=== PATIENT | male | born 1970 | race Caucasian/White ===

== ENCOUNTER 2016-10-10 10:12 | Emergency (ER) | payer BC ==
--- NOTE | 2016-10-10 10:17 | DR.GENAD ---
HPI - HPI Comment HPI Comment: PAIN STARTED SUDDENLY THIS MORNING AND PROGRESSIVELY GOT WORSE. NAUSEATED BUT NO VOMITING. NO DYSURIA OR HEMATURIA. NO DIARRHEA. NO TRAUMA IN THE AREA. - Complaint/Symptoms Chief Complaint Doctors Comments: RUQ ABDOMINAL PAIN EXTENDING TO RIGHT LATERAL ABDOMEN TIMES FEW HOURS. - Nurses notes reviewed Nurses Notes Review: Yes - Source History Provided: Patient, Family Member - Mode of Arrival Mode of Arrival: Ambulatory - Timing Came on: Suddenly - Duration Duration: Constant Duration: Hours - Severity Severity: Moderate ROS - Review of Systems Constitutional: negative: Chills, Fever, Malaise Eyes: No Symptoms Reported. negative: Eye Pain, Discharge ENTM: No Symptoms Reported. negative: Ear Pain, Nose Discharge, Nose Congestion , Throat Pain Respiratoy: No Symptoms Reported. negative: Productive Cough, Short of Breath, Wheezing, Hemoptysis Cardiovascular: No Symptoms Reported. negative: Chest Pain Gastrointestinal/Abdominal: Abdominal Pain, Nausea. negative: Constipation, Diarrhea, Vomiting Genitourinary: No Symptoms Reported. negative: Dysuria, Frequency, Hematuria Neurological: No Symptoms Reported. negative: Headache, Weakness, Dizziness Musculoskeletal: Back Pain (RIGHT FLANK) Integumentary: No Symptoms Reported Hematologic/Lymphatic: No Symptoms Reported Endocrine: No Symptoms Reported All Other Systems: Reviewed and Negative PE - Vital Signs Vitals: Temperature 98.6 F Pulse Rate [Left Brachial] 81 Pulse Rate 61 Respiratory Rate 22 Blood Pressure [Right Arm] 126/87 Blood Pressure 129/87 O2 Sat by Pulse Oximetry 99 - General Limitations: No Limitations General Appearance: Alert - Head Head Exam: Normal Inspection - Eyes Eye exam: Normal Appearance - ENT ENT Exam: Normal External Ear Exam External Ear Exam: Normal External Inspection TM/Canal Exam: Bilateral Normal Nose Exam: Normal Nose Exam Mouth Exam: Normal Inspection Throat Exam: Normal Inspection - Neck Neck Exam: Trachea Midline - Chest Chest Inspection: Symmetric Chest Wall Rise - Respiratory Respiratory Exam: Normal Lung Sounds Bilat Respiratory Exam: Bilateral Clear to Auscultation - Cardiovascular Cardiovascular Exam: Regular Rate, Normal Rhythm, Normal Heart Sounds - Abdominal Exam Abdominal Exam: Normal Bowel Sounds, Soft, Tenderness Abdominal Tenderness: RUQ, Epigastrium, Severe - Extremities Extremities Exam: Normal Inspection - Back Back Exam: Normal Inspection - Neurologic Neurological Exam: Alert, Oriented X3 - Psychiatric Psychiatric Exam: Anxious - Skin Skin Exam: Normal Color MDM - Additional Information Additional Information Obtained From: Family - Differential Diagnosis Differential Diagnosis: ABDOMINAL PAIN/RUQ, UTI, KIDNEY STONE, CHOLECYSTITIS/ CHOLELITHIASIS Course - Treatment Treatment: SEE ORDERS. - Consultation Consultation Comments: DISCUSS PATIENT WITH MANI GIL PRIMARY CARE PROVIDER. SHE WILL RECHECK PATIENT IN HER OFFICE IN AM. - Education/Counseling Education/Counseling: Patient, Family, Education Educated On: Treatment, Diagnosis ROR - Labs Reviewed Laboratory Results Reviewed?: Yes Result Diagrams: 10/10/16 11:05 10/10/16 11:05 Laboratory: WBC 7.7 X10^3/uL (3.6-10.0) 10/10/16 11:05 RBC 4.74 X10^6/uL (4.7-6.0) 10/10/16 11:05 Hgb 14.1 g/dL (13.5-18.0) 10/10/16 11:05 Hct 41.7 % (42.0-54.0) L 10/10/16 11:05 MCV 88.0 fL (80.0-100.0) 10/10/16 11:05 MCH 29.8 pg (27.0-34.0) 10/10/16 11:05 MCHC 33.8 g/dL (33.0-35.0) 10/10/16 11:05 RDW 13.9 % (11.6-16.5) 10/10/16 11:05 Plt Count 225 X10^3/uL (150.0-450.0) 10/10/16 11:05 MPV 7.7 fL (7.4-11.0) 10/10/16 11:05 Neut % 68.3 % (42.0-75.0) 10/10/16 11:05 Lymph % 20.6 % (21.0-51.0) L 10/10/16 11:05 [place] % 8.3 % (0.0-13.0) 10/10/16 11:05 Eos % 1.0 % (0.9-2.9) 10/10/16 11:05 Baso % 1.8 % (0.2-1.0) H 10/10/16 11:05 Neut # 5.3 x10^3/uL (2.2-4.8) H 10/10/16 11:05 Lymph # 1.6 X10^3/uL (1.3-2.9) 10/10/16 11:05 [place] # 0.6 x10^3/uL (0.3-0.8) 10/10/16 11:05 Eos # 0.1 x10^3/uL (0.0-0.2) 10/10/16 11:05 Baso # 0.1 X10^3/uL (0.0-0.1) 10/10/16 11:05 Absolute Nucleated RBC 0.0 /100WBC 10/10/16 11:05 Sodium 142 mmol/L (136-145) 10/10/16 11:05 Corrected Sodium 143 mmol/L (136-145) 10/10/16 11:05 Potassium 4.5 mmol/L (3.5-5.1) 10/10/16 11:05 Chloride 107 mmol/L (98-107) 10/10/16 11:05 Carbon Dioxide 29.2 mmol/L (21-32) 10/10/16 11:05 BUN 15 mg/dL (7-18) 10/10/16 11:05 Creatinine 1.00 mg/dL (0.70-1.30) 10/10/16 11:05 Est GFR (MDRD) Af Amer > 60 (>60) 10/10/16 11:05 Est GFR (MDRD) Non-Af > 60 (>60) 10/10/16 11:05 Glucose 126 mg/dL (65-99) H 10/10/16 11:05 Calcium 8.3 mg/dL (8.5-10.1) L 10/10/16 11:05 Corrected Calcium TNP 10/10/16 11:05 Total Bilirubin 0.40 mg/dL (0.2-1.0) 10/10/16 11:05 AST 19 Units/L (15-37) 10/10/16 11:05 ALT 31 Units/L (12-78) 10/10/16 11:05 Alkaline Phosphatase 40 Units/L (46-116) L 10/10/16 11:05 Total Protein 6.8 g/dL (6.4-8.2) 10/10/16 11:05 Albumin 3.7 g/dL (3.4-5.0) 10/10/16 11:05 Globulin 3.1 g/dL (2.5-4.5) 10/10/16 11:05 Albumin/Globulin Ratio 1.2 Ratio (1.1-2.1) 10/10/16 11:05 Amylase 36 Units/L (25-115) 10/10/16 11:05 Lipase 108 Units/L (73-393) 10/10/16 11:05 Specimen Type Clean catch urine 10/10/16 10:48 Urine Color Fanny (YELLOW) 10/10/16 10:48 Urine Appearance Clear (CLEAR) 10/10/16 10:48 Urine pH 7.0 (5.0 - 8.0) 10/10/16 10:48 Ur Specific [place] 1.015 (1.000-1.030) 10/10/16 10:48 Urine Protein Negative (NEGATIVE) 10/10/16 10:48 Urine Glucose (UA) Negative (NEGATIVE) 10/10/16 10:48 Urine Ketones Negative (NEGATIVE) 10/10/16 10:48 Urine Occult Blood Negative (NEGATIVE) 10/10/16 10:48 Urine Nitrite Negative (NEGATIVE) 10/10/16 10:48 Urine Bilirubin Negative (NEGATIVE) 10/10/16 10:48 Urine Urobilinogen Normal (NORMAL) 10/10/16 10:48 Ur Leukocyte Esterase Negative (NEGATIVE) 10/10/16 10:48 Urine RBC Negative /HPF (NEGATIVE) 10/10/16 10:48 Urine WBC Rare /HPF (NEGATIVE) 10/10/16 10:48 Ur Squamous Epith Cells Rare /HPF (NEGATIVE) 10/10/16 10:48 Urine Bacteria Negative /HPF (NEGATIVE) 10/10/16 10:48 Ur Culture Indicated? No/not indicated 10/10/16 10:48 - XRAY XRAY Interpreted by: Radiologist XRAY Findings: REPORT DISCUSS WITH PATIENT. - Diagnosis Discharge Problem: Abdominal pain - Discharge Plan Disposition: 01 HOME, SELF-CARE Condition: Stable Prescriptions: Hydrocodone-Acet 5 mg/325 mg [[place] 5/325 mg Tab] 1 tab PO Q6H PRN #12 tab PRN Reason: Pain Ondansetron HCl [Zofran Tab 4 mg] 4 mg PO Q8H PRN #12 tab PRN Reason: Nausea/Vomiting - Follow ups/Referrals Follow ups/Referrals: ARNALDO GARY [Primary Care Provider] - 10/11/16 - Instructions Instructions: Abdominal Pain, Adult, [id number] Additional Instructions: RETURN TO ED IF WORSE.
[2016-10-10] MEDS ORDERED: ZOFRAN INJ 4 MG VIAL IVP ONE (10:25)
[2016-10-10] MEDS ORDERED: NS 1000 ML 1,000 ML IV ONE (10:25)
[2016-10-10] MEDS ORDERED: DEMEROL INJ IVP ONE (10:25)
[2016-10-10] MEDS ORDERED: ZOFRAN INJ 4 MG VIAL ONE (10:27)
[2016-10-10] MEDS ORDERED: NS 1000 ML 1,000 ML ONE ×2 (10:27→11:29)
[2016-10-10] MEDS ORDERED: DEMEROL INJ ONE (10:28)
[2016-10-10 10:55] VITALS: BMI 23.3
[2016-10-10 11:03] VITALS: BP 126/87
[2016-10-10] MEDS ORDERED: TORADOL 30 MG VIAL ONE (11:04)
[2016-10-10] MEDS ORDERED: PEPCID 20 MG IV PREMIX* 20 MG/50 ML BAG IV ONE ×2 (11:04→11:09)
[2016-10-10] MEDS ORDERED: TORADOL 30 MG VIAL IVP ONE (11:04)
[2016-10-10 11:17] LABS: BASOPHILS # (AUTO) 0.1 X10^3/uL (0.0-0.1); BASOPHILS % (AUTO) 1.8 % (0.2-1.0); EOSINOPHILS # (AUTO) 0.1 x10^3/uL (0.0-0.2); HEMATOCRIT 41.7 % (42.0-54.0); HEMOGLOBIN 14.1 g/dL (13.5-18.0); LYMPHOCYTES # (AUTO) 1.6 X10^3/uL (1.3-2.9); LYMPHOCYTES % (AUTO) 20.6 % (21.0-51.0); MEAN CORPUSCULAR HEMOGLOBIN 29.8 pg (27.0-34.0); MEAN CORPUSCULAR HGB CONC 33.8 g/dL (33.0-35.0); MEAN PLATELET VOLUME 7.7 fL (7.4-11.0); MONOCYTES # (AUTO) 0.6 x10^3/uL (0.3-0.8); MONOCYTES % (AUTO) 8.3 % (0.0-13.0); NEUTROPHILS # (AUTO) 5.3 x10^3/uL (2.2-4.8); NEUTROPHILS % (AUTO) 68.3 % (42.0-75.0); PLATELET COUNT 225 X10^3/uL (150.0-450.0); RED BLOOD COUNT 4.74 X10^6/uL (4.7-6.0); RED CELL DISTRIBUTION WIDTH 13.9 % (11.6-16.5); WHITE BLOOD COUNT 7.7 X10^3/uL (3.6-10.0)
[2016-10-10 11:18] LABS: BILIRUBIN,URINE NEGATIVE (NEGATIVE); BLOOD/HEMOGLOBIN,URINE NEGATIVE (NEGATIVE); GLUCOSE, URINE NEGATIVE (NEGATIVE); KETONES,URINE NEGATIVE (NEGATIVE); LEUKOCYTE ESTERASE ,URINE NEGATIVE (NEGATIVE); NITRITES,URINE NEGATIVE (NEGATIVE); PROTEIN,URINE NEGATIVE (NEGATIVE); UROBILINOGEN,URINE NORMAL (NORMAL)
[2016-10-10 11:31] LABS: APPEARANCE,URINE CLEAR (CLEAR); COLOR,URINE AMBER (YELLOW); RBC,URINE NEGATIVE /HPF (NEGATIVE)
[2016-10-10] MEDS ORDERED: DILAUDID INJ IVP ONE (11:31)
[2016-10-10 11:32] LABS: BACTERIA,URINE NEGATIVE /HPF (NEGATIVE); SQUAMOUS EPITHELIAL CELL,UR RARE /HPF (NEGATIVE)
[2016-10-10] MEDS ORDERED: DILAUDID INJ ONE (11:35)
[2016-10-10 11:41] LABS: ALANINE AMINOTRANSFERASE 31 Units/L (12-78); ALBUMIN 3.7 g/dL (3.4-5.0); ALKALINE PHOSPHATASE 40 Units/L (46-116); AMYLASE 36 Units/L (25-115); ASPARTATE AMINO TRANSFERASE 19 Units/L (15-37); BLOOD UREA NITROGEN 15 mg/dL (7-18); CALCIUM 8.3 mg/dL (8.5-10.1); CARBON DIOXIDE 29.2 mmol/L (21-32); CHLORIDE 107 mmol/L (98-107); COR NA(FOR HYPERGLY) 143 mmol/L (136-145); GLUCOSE 126 mg/dL (65-99); LIPASE 108 Units/L (73-393); SODIUM 142 mmol/L (136-145); TOTAL PROTEIN 6.8 g/dL (6.4-8.2); eGFR BLACK RACES > 60 (>60); eGFR NON BLACK RACES > 60 (>60)
[2016-10-10] MEDS ORDERED: NS 1000 ML 1,000 ML IV SCH (12:00)
--- NOTE | 2016-10-10 12:28 | CT ---
HISTORY: Abdomen pain, severe right flank pain. Study: CT abdomen and pelvis without IV or oral contrast Comparison: No priors Technique: Multiple axial images of the abdomen and pelvis were obtained from the lung bases to the pubic symph ysis without the administration of IV or oral contrast. Coronal and sagittal images are also review ed. Dose reduction techniques utilized automatic exposure control. Findings: The visualized portions of the lung bases are unremarkable. The liver, spleen, pancreas, kidneys, a nd adrenal glands are unremarkable in their CT appearance. The gallbladder is unremarkable in its CT appearance. No evidence of free intraperitoneal air or fluid is seen. No bowel wall thickening is appreciated. There is some very mild left-sided mesenteric stranding. The significance of this is un certain. There is no evidence of bowel wall thickening or indication of bowel wall ischemia. Small b ilateral inguinal hernias are present containing mesenteric fat only and no bowel. There are small l ymph nodes present in both groin regions. These appear architecturally normal and are not significan tly enlarged. The appendix is normal.. The colon is unremarkable. Specifically, there is no divert iculosis noted within the sigmoid colon. The urinary bladder is grossly unremarkable. The bony stru ctures are grossly intact. IMPRESSION: Mild mesenteric stranding present on the left. The significance of this is uncertain. No adenopathy or fluid is seen. There is no evidence of bowel wall thickening or ischemia. No evidence or renal mass, stone or hydronephrosis. Normal appendix. Small bilateral inguinal hernias containing mesenteric fat only and no bowel. Reported By:
--- NOTE | 2016-10-10 14:15 | US ---
HISTORY: Right upper quadrant pain that started this a.m.. Study: Right upper quadrant abdominal ultrasound Comparison: CT abdomen and pelvis done also earlier on October 10, 2016. Technique: Multiple caal scale and color flow Doppler images of the right upper quadrant were obtain ed. Findings: The liver is normal in size but displays evidence of diffuse fatty change.. No focal intraparenchym al mass or intrahepatic biliary ductal dilatation can be observed. The gallbladder fails to demonst rate evidence for cholelithiasis or layering sludge. The common bile duct is unremarkable measuring 2.9 millimeters. No pericholecystic fluid is seen. There is mild gallbladder wall thickening. The gallbladder wall measures 5.1 millimeters in thickness.. The right kidney appears normal in size without focal parenchymal mass or nephrolithiasis. The righ t kidney measurers 5.9 x 8.5 x 10.47 centimeters. No hydronephrosis or perirenal fluid can be obser yari. The pancreatic head and body are unremarkable. The pancreatic tail is largely obscured by ove rlying bowel gas. IMPRESSION: Mild gallbladder wall thickening. No evidence of gallstone or pericholecystic fluid is seen. Fatty change present throughout the liver. No liver mass or ductal ectasia is seen. Reported By:
== END 2016-10-10 14:53 | disposition home or self-care (01) ==
LOC: ER 10:32
DX: R10.11 Right upper quadrant pain (principal)
CPT/HCPCS: 36415; 74176; 76705; 80053; 81001; 82150; 83690; 85025; 93005; 93010; 96365; 96367; 96374; 96375; 99283; A4222; S0028; J1170; J1885; J2175; J2405